=== PATIENT | female | born 1995 | race African-American/Black ===

== ENCOUNTER 2020-03-21 06:52 | Outpatient (CLI) | payer OTHER ==
[2020-03-21] MEDS ORDERED: GADOBUTROL 10 MMOL/10 ML VIAL ONE (07:26)
[2020-03-21] MEDS ORDERED: GADOBUTROL 10 MMOL/10 ML VIAL IVP ONE (09:25)
--- NOTE | 2020-03-21 12:43 | MRI Report ---
PROCEDURE: Brain W/WO INDICATIONS: BENGIGN NEOPLASM OF PITUITARY GLAND CONTRAST: IV CONTRAST: Gadavist ml: 9 TECHNIQUE: Noncontrast sagittal and axial FLAIR, axial gradient echo, axial diffusion and ADC through the brain. Thin-slice sagittal and coronal T1 spin echo, coronal T2 fast spin echo through the pituitary. Aft er the administration contrast, optional dynamic coronal T1 spin echo, thin-slice coronal and sagitta l T1 spin echo images through the pituitary fossa; axial T1 spin echo with fat saturation through the brain. COMPARISON: 07/19/2018, 12/21/2016 FINDINGS: Image quality: Excellent. Pituitary Gland: Within the posterior aspect of the pituitary gland, there is an ovoid focus seen th at measures 6 x 6 x 10 mm. On precontrast T1-weighted imaging, this focus demonstrates increased T1-w eighted signal. No significant enhancement can be seen. On T2-weighted images, this lesion demonstrat es decreased signal compared to the normal adjacent pituitary gland. Compared to the 2018 examination , no significant change can be seen. The pituitary gland otherwise demonstrates normal bulk and normal signal. A normal-appearing posterio r pituitary T1 hyperintense bright spot is seen. The pituitary stalk is midline and demonstrates no a bnormal enhancement. The optic chiasm and the ventral forebrain demonstrate an unremarkable appearanc e. CSF Spaces: Ventricles are normal in size and shape. Basal cisterns are patent. No extra-axial flu id collections. Brain: No intracranial bleeds or mass effects. No abnormal intracranial enhancement. Briggs-white ma tter interface is intact. Diffusion weighted images demonstrate no acute ischemic insults. Brainste m is normal. Normal intravascular flow voids are present. Skull and face: Calvarial marrow is normal in signal. Orbits appear normal. Sinuses: Sinuses and mastoids are clear. IMPRESSION: There is a stable T1 hyperintense focus within the posterior aspect of the pituitary gland, without s ignificant change compared to 2019. 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 Please consider a follow-up study in 1 to 2 years for further evaluation. Reviewed by: Samson Mo MD on 03/21/2020 11:42 AM [place] Approved by: Samson Mo MD on 03/21/2020 11:42 AM [facility] Station ID: [id number]
== END 2020-03-21 06:53 | disposition home or self-care (01) ==
LOC: DI 06:52
PROVIDERS: ATTEND Nurse Practitioner Family
DX: D35.2 Benign neoplasm of pituitary gland (principal)
CPT/HCPCS: 70553; A9585

== ENCOUNTER 2021-02-16 08:06 | Outpatient (CLI) | payer OTHER ==
[2021-02-16] MEDS ORDERED: GADOBUTROL 10 MMOL/10 ML VIAL ONE (09:04)
[2021-02-16] MEDS ORDERED: GADOBUTROL 10 MMOL/10 ML VIAL IVP ONE (11:49)
--- NOTE | 2021-02-16 14:02 | MRI Report ---
PROCEDURE: Brain W/WO INDICATIONS: DISORDER OF PITUITARY GLAND CONTRAST: IV CONTRAST: Gadavist ml: 8.7 TECHNIQUE: Noncontrast axial T1 spin echo, axial T2 fast spin echo, sagittal and axial FLAIR, coronal T2 fast sp in echo, axial gradient echo, axial diffusion and ADC through the brain. After the administration of contrast, axial and coronal T1 spin echo with fat saturation through the brain. COMPARISON: 07/19/2018, 12/21/2016, 03/21/2020 FINDINGS: Image quality: Excellent. Pituitary Gland: Within the posterior aspect of the pituitary gland, there is an ovoid focus on sagit jarad seen that measures 6 x 6 x 10 mm. On precontrast sagittal T1-weighted imaging, this focus demonst rates increased T1-weighted signal. No postcontrast enhancement. On coronal T2-weighted images, this lesion demonstrates mild decreased signal compared to the normal adjacent pituitary gland, unchanged compared to the prior MRI on 03/21/2020. The above findings are also The pituitary gland otherwise dem onstrates normal bulk and normal signal. A normal-appearing posterior pituitary T1 hyperintense brigh t spot is seen. The pituitary stalk is midline and demonstrates no abnormal enhancement. The optic ch iasm and the ventral forebrain demonstrate an unremarkable appearance. CSF Spaces: Ventricles are normal in size and shape. Basal cisterns are patent. No extra-axial fluid collections. Brain: No intracranial bleeds or mass effects. No abnormal intracranial enhancement. Briggs-white matte r interface is intact. Diffusion weighted images demonstrate no acute ischemic insults. Brainstem is normal. Normal intravascular flow voids are present. Skull and face: Calvarial marrow is normal in signal. Orbits appear normal. Sinuses: Sinuses and mastoids are clear. 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 Reviewed by: Kofi Bridges on 02/16/2021 1:00 PM [facility] Approved by: Kofi Bridges on 02/16/2021 1:00 PM [facility] Station ID: [id number]
== END 2021-02-16 08:07 | disposition home or self-care (01) ==
LOC: DI 08:06
PROVIDERS: ATTEND Nurse Practitioner Family
DX: E23.7 Disorder of pituitary gland, unspecified (principal)
CPT/HCPCS: 70553; A9585

== ENCOUNTER 2022-06-17 15:15 | Outpatient (CLI) | payer OTHER ==
[2022-06-17 22:33] LABS: BACTERIAL VAGINOSIS DNA NEGATIVE (NEGATIVE); CANDIDA GLABRATA DNA NEGATIVE (NEGATIVE); CANDIDA GROUP DNA NEGATIVE (NEGATIVE); CANDIDA KRUSEI DNA NEGATIVE (NEGATIVE); TRICHOMONAS VAGINALIS DNA NEGATIVE (NEGATIVE)
[2022-06-18 00:30] LABS: CHLAMYDIA TRACHOMATIS DNA NEGATIVE (NEGATIVE); NEISSERIA GONORRHOEAE DNA NEGATIVE (NEGATIVE); TRICHOMONAS VAGINALIS DNA NEGATIVE (NEGATIVE)
== END 2022-06-17 15:30 | disposition home or self-care (01) ==
LOC: LAB.N 15:15
PROVIDERS: ATTEND Physician Assistant
DX: R30.0 Dysuria (principal)
CPT/HCPCS: 81514; 87491; 87591; 87661

== ENCOUNTER 2022-06-19 08:00 | Outpatient (CLI) | payer OTHER | END 2022-06-19 23:59 | disposition home or self-care (01) | LOC: LAB.N 08:00 | PROVIDERS: ATTEND Nurse Practitioner | DX: R30.0 Dysuria (principal) | CPT/HCPCS: 87086 ==

== ENCOUNTER 2022-09-09 08:00 | Outpatient (CLI) | payer OTHER ==
[2022-09-10 15:30] LABS: BACTERIAL VAGINOSIS DNA POSITIVE (NEGATIVE); CANDIDA GLABRATA DNA NEGATIVE (NEGATIVE); CANDIDA GROUP DNA POSITIVE (NEGATIVE); CANDIDA KRUSEI DNA NEGATIVE (NEGATIVE); TRICHOMONAS VAGINALIS DNA NEGATIVE (NEGATIVE)
[2022-09-10 18:23] LABS: CHLAMYDIA TRACHOMATIS DNA NEGATIVE (NEGATIVE); NEISSERIA GONORRHOEAE DNA NEGATIVE (NEGATIVE)
== END 2022-09-09 23:58 | disposition home or self-care (01) ==
LOC: LAB.N 08:00
PROVIDERS: ATTEND Nurse Practitioner
DX: Z11.3 Encounter for screening for infections with a predominantly sexual mode of transmission (principal); R30.0 Dysuria
CPT/HCPCS: 81514; 87086; 87181; 87491; 87591; 87661